=== PATIENT | male | born 1970 | race Caucasian/White ===

== ENCOUNTER 2017-11-03 10:23 | Emergency (ER) | payer OTHER ==
[~2017-11-03] VITALS: Ht 172.7 cm; Wt 65.0 kg
[~2017-11-03 10:23] MED LIST: BACT800T5 PO; CLIN150 PO; IBUP800T23 PO; WELL200T PO
[2017-11-03 10:29] VITALS: BP 120/77; PULSE 92; RESP 14; TEMP 98.1; O2SAT 98
--- NOTE | 2017-11-03 10:44 | PD ---
HPI Chief Complaint: Laceration/Skin Injury Time Seen by Provider: 10:34 Travel History International Travel<30 days: No Contact w/Intl Traveler<30days: No Traveled to known affect area: No History of Present Illness HPI 47-year-old male presents for evaluation of right wrist laceration. 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 The chainsaw was not on at the time. He now has a laceration to the volar aspect of the right wrist which is painful, throbbing, worse with palpation. Denies any numbness, tingling, weakness in the right hand or fingers. His last tetanus vaccination is unknown. He has no other complaints at this time. 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 3 cm laceration on the volar medial aspect of the right wrist. Linear with some bleeding, no pulsating blood. CARDIOVASCULAR: Regular rate and rhythm. No murmur appreciated. RESPIRATORY: No accessory muscle use. Clear to auscultation. Breath sounds equal bilaterally. MUSCULOSKELETAL: Skin as noted above. 2+ radial pulses. Valeriano's test is normal suggesting a patent ulnar artery. Capillary refill less than 2 seconds in all digits of the right hand. The patient maintains full range of motion of the right wrist and all fingers of the right hand with full muscle strength on flexion and extension. Distal sensation is preserved in the median, radial and ulnar nerve distributions. NEUROLOGICAL: Awake and alert. No obvious cranial nerve deficits. Motor grossly within normal limits. Normal speech. Data Data Last Documented VS Vital Signs Date Time Temp Pulse Resp B/P (MAP) Pulse Ox O2 Delivery O2 Flow Rate FiO2 11/03/17 10:29 98.1 92 14 120/77 (91) 98 Orders Orders Iv Access Insert/Monitor (11/03/17 10:34) Lidocai-Epi 1%-1:100,000 Inj (Xylocaine- (11/03/17 10:45) Tetanus/Diphtheria Tox Adult (Tetanus/Di (11/03/17 10:45) Cefazolin 2 Gm Premix (Ancef 2 Gm Premix (11/03/17 10:45) Wrist, Complete ([id number]) (11/03/17 ) Lidocai-Epi 1%-1:100,000 Inj (Xylocaine- (11/03/17 11:00) Ed Discharge Order (11/03/17 11:36) [facility] Medical Decision Making Medical Screen Exam Complete: Yes Emergency Medical Condition: Yes Medical Record Reviewed: Yes Differential Diagnosis Cutaneous laceration, open fracture, neurovascular injury, flexor tendon injury Narrative Course The patient will be given IV Ancef. Tetanus status updated. X-ray imaging has been ordered. The laceration will be anesthetized and thoroughly irrigated and explored. The laceration was repaired with sutures, he verbally consented. He will be discharged with a short course of Keflex. Procedures Procedure Narrative LACERATION LOCATION: Right wrist LENGTH: 3 cm NUMBER OF STITCHES/BETY: 8 REPAIR: The area of the laceration was prepped with Betadine and sterilely draped. The laceration was infiltrated with 1% lidocaine with epinephrine. The wound was copiously irrigated and explored without evidence of foreign body , tendon injury or neurovascular injury. The wound was closed using 4-0 Prolene simple interrupted. This was a single layer repair. A sterile dressing was applied. The patient was advised to keep the dressing clean and dry. Patient tolerated the procedure well. Diagnosis Primary Impression: Laceration of arm Additional Instructions: Wash gently with soap and water and apply antibiotic cream and clean bandages daily. Return in 10-14 days for suture removal. Med/Other Pt SpecificInfo: Prescription(s) given, Wound Care Scripts Cephalexin (Keflex) 500 Mg Capsule 500 MG PO TID for Infection for 5 Days, CAP 0 Refills Prov: Bautista Hopkins MD 11/03/17 Disposition: 01 DISCHARGE HOME Condition: Stable Keon Duran PA Nov 03, 2017 10:44
[2017-11-03] MEDS ORDERED: LIDOCAINE 1%/EPINEPHrine 1:100,000 SOLN 20 ML VIAL INFIL ONE (10:45)
[2017-11-03] MEDS ORDERED: TETANUS/DIPHTHERIA TOXOID ADULT 0.5 ML VIAL IM ONE (10:45)
[2017-11-03] MEDS ORDERED: ceFAZolin 2 GM PREMIX 50 ML IV ONE (10:45)
--- NOTE | 2017-11-03 10:55 | RADRPT ---
EXAM DATE/TIME: 11/03/2017 10:45 [facility] COMPARISON: No previous studies available for comparison. INDICATIONS : Laceration from chainsaw. MEDICAL HISTORY : None. SURGICAL HISTORY : None. ENCOUNTER: Initial ACUITY: 1 day PAIN SCORE: 7/10 LOCATION: Right wrist. FINDINGS: Soft tissue laceration volar aspect of the forearm lateral side without foreign body or fracture. CONCLUSION: Soft tissue lateral laceration no fracture Christopher Anaya MD FACR on November 03, 2017 at 10:52 Board Certified Radiologist. This report was verified electronically.
[2017-11-03] MEDS ORDERED: LIDOCAINE 1%/EPINEPHrine 1:100,000 SOLN 30 ML VIAL INFIL ONE (11:00)
[2017-11-03] MEDS ORDERED: CEPH-460 PO (11:36)
== END 2017-11-03 12:17 | disposition home or self-care (01) ==
LOC: NEPK 10:23
DX: S61.511A Laceration without foreign body of right wrist, initial encounter (principal); W19.XXXA Unspecified fall, initial encounter; Z23 Encounter for immunization
CPT/HCPCS: 12002; 73110; 90471; 90714; 96365; 99284; J0690; 96372